=== PATIENT | male | born 1950 | race Caucasian/White ===

== ENCOUNTER 2016-08-22 08:04 | Inpatient (IN) | payer OTHER ==
[~2016-08-22] VITALS: Ht 180.3 cm; Wt 98.0 kg
--- NOTE | 2016-08-25 13:10 | NUR ---
1155 REPORT RECEIVED FROM BEVERLY MAS FOR PATIENT TO TRANFER TO 3RD FLOOR. 1210 PATIENT TRANSFERRED TO 3RD FLOOR ROOM 302 VIA AMBULATING AT THIS TIME. PATIENT ALERT AND ORIENTED X 3, NO COMPLAINTS AT THIS TIME. PATIENT SITTING ON SIDE OF BED. IV LEFT ARM FLUSHED AT THIS TIME, NO COMPLICATIONS NOTED.
--- NOTE | 2016-08-25 14:08 | NUR ---
1153: REPORT GIVEN TO BOGDAN BRYAN RN ON [facility]. PT INSTR THAT HE WILL BE TRANSFERRED TO [facility]. PT VERB AGREEMENT. PT ALERT AND ORIENTED X3, VSS, AND NO DISTRESS OR PAIN NOTED 1200: PT TRANSPORTED TO [facility] VIA AMBULATION WITH RN
--- NOTE | 2016-08-25 17:04 | NUR ---
REPORT GIVEN TO MIRNA MAS TO TAKE OVER CARE OF PATIENT
== END 2016-08-26 13:55 | disposition home or self-care (01) | DRG 371 ==
LOC: ER 08:04 → MED 12:10 → ICU 12:10 → MED 08-25 12:32
PROVIDERS: ADMIT Internal Medicine
DX: A02.0 Salmonella enteritis (principal); A41.9 Sepsis, unspecified organism; R65.20 Severe sepsis without septic shock; A04.7 Enterocolitis due to Clostridium difficile; D72.819 Decreased white blood cell count, unspecified; D69.6 Thrombocytopenia, unspecified; E87.6 Hypokalemia; E83.42 Hypomagnesemia; E11.9 Type 2 diabetes mellitus without complications; F17.210 Nicotine dependence, cigarettes, uncomplicated; F10.20 Alcohol dependence, uncomplicated; I10 Essential (primary) hypertension; G25.81 Restless legs syndrome; G89.29 Other chronic pain; M54.5 Low back pain; K21.9 Gastro-esophageal reflux disease without esophagitis; Z90.49 Acquired absence of other specified parts of digestive tract; Z89.021 Acquired absence of right finger(s); Z79.82 Long term (current) use of aspirin; Z79.84 Long term (current) use of oral hypoglycemic drugs; Z79.899 Other long term (current) drug therapy; Z80.6 Family history of leukemia; Z80.0 Family history of malignant neoplasm of digestive organs; Z82.49 Family history of ischemic heart disease and other diseases of the circulatory system
CPT/HCPCS: 36415; 80307; 87502; 87507; 97162-GP; 97165; G0480; J1650; J2060; J7030

== ENCOUNTER → 2016-08-22 | Emergency (ER) | payer OTHER | END | disposition critical access hospital (66) | LOC: ER 08:04 | DX: K52.9 Noninfective gastroenteritis and colitis, unspecified (principal); R50.9 Fever, unspecified; E83.42 Hypomagnesemia; E11.9 Type 2 diabetes mellitus without complications; I10 Essential (primary) hypertension; F17.210 Nicotine dependence, cigarettes, uncomplicated; I25.10 Atherosclerotic heart disease of native coronary artery without angina pectoris; Z90.49 Acquired absence of other specified parts of digestive tract; Z79.82 Long term (current) use of aspirin; Z79.84 Long term (current) use of oral hypoglycemic drugs; Z79.899 Other long term (current) drug therapy | CPT/HCPCS: 36415; 87502; 96361; 96365; 96368; 96375 ==